=== PATIENT | male | born 2000 | race Caucasian/White ===

== ENCOUNTER 2019-10-22 15:25 | Outpatient (CLI) | payer OTHER ==
--- NOTE | 2019-10-22 15:44 | RAD ---
Exam: 3 views sacrum and coccyx HISTORY: Pain x6 days FINDINGS: Lateral projections do not demonstrate any malalignment. Inlet and outlet views of the sacr um demonstrate preserved ala. Visualized bony pelvis is unremarkable IMPRESSION: Unremarkable sacral and coccygeal radiograph series.
== END 2019-10-22 15:26 | disposition home or self-care (01) ==
LOC: SCSRAD 15:25
PROVIDERS: ATTEND Family Medicine
DX: M53.3 Sacrococcygeal disorders, not elsewhere classified (principal)
CPT/HCPCS: 72220